=== PATIENT | male | born 1995 | race Caucasian/White ===

== ENCOUNTER 2021-01-27 11:39 | Emergency (ER) | payer OTHER ==
[2021-01-27 11:52] VITALS: BP 143/88; PULSE 93
--- NOTE | 2021-01-27 12:32 | EDM.PDOC ---
ED HPI GENERAL MEDICAL PROBLEM - General Chief Complaint: Head Injury Stated Complaint: POSS HEAD INJURY Time Seen by Provider: 01/27/21 11:51 Source of Information: Reports: Patient History Limitations: Reports: No Limitations - History of Present Illness INITIAL COMMENTS - FREE TEXT/NARRATIVE: 25-year-old male presents the emergency department with complaints of a head injury. 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 Patient states the ladder was approximately a 10 foot tall letter. He estimates that it weighed about 20 pounds. He denies loss of consciousness, blurred vision or double vision. He states he initially had some neck discomfort however this has resolved by the time of ER visit. He denies taking any blood thinners or aspirin. He denies any significant medical history. Head Pain Score (Numeric/FACES): 3 - Related Data Allergies Allergy/AdvReac Type Severity Reaction Status Date / Time amoxicillin Allergy Hives Verified 03/06/16 13:01 Home Meds: Home Meds . [No Known Home Meds] 03/06/16 [History] Past Medical History - Past Health History Medical/Surgical History: Denies Medical/Surgical History Genitourinary History: Reports: Renal Calculus - Infectious Disease History Infectious Disease History: Reports: None Social & Family History - Tobacco Use Tobacco Use Status *Q: Never Tobacco User - Caffeine Use Caffeine Use: Reports: Coffee - Recreational Drug Use Recreational Drug Type: Reports: Marijuana/Hashish ED ROS GENERAL - Review of Systems Review Of Systems: Comprehensive ROS is negative, except as noted in HPI. ED EXAM, HEAD INJURY - Physical Exam Exam: See Below Exam Limited By: No Limitations General Appearance: Alert, WD/WN, No Apparent Distress Head: Scalp Abrasions (Very small superficial abrasion noted to the top of the patient's scalp.), Scalp Tenderness (Top of patient's scalp) Nexus Criteria: No: Posterior, Midline Cervical Tenderness, Evidence of Intoxication, Altered Level of Consciousness, Focal Neurological Deficit, Painful Distraction Injuries Eyes: Bilateral Eye: EOMI, PERRL Ears: Normal External Exam, Hearing Grossly Normal Nose: Normal Inspection Throat/Mouth: Normal Inspection, Normal Lips, Normal Voice, No Airway Compromise Neck: Non-Tender, Full Range of Motion, Normal Alignment, Normal Inspection Respiratory: No Respiratory Distress, Lungs Clear, Normal Breath Sounds, No Accessory Muscle Use, Chest Non-Tender Cardiovascular: Normal Peripheral Pulses, Regular Rate, Rhythm, No Edema, No Murmur GI/Abdominal Exam: Normal Bowel Sounds, Soft, Non-Tender, No Distention (Male) Exam: Deferred Rectal (Males) Exam: Deferred Back Exam: Normal Inspection Extremities: Normal Inspection, Normal Range of Motion 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 Upon exam, patient is awake alert and oriented x3. Full neuro exam is completely unremarkable. Does have a small area of redness and a very small superficial abrasion noted to the top of his head measuring approximately 2 cm x 1 cm. I do not appreciate any cervical tenderness. Did discuss CT scan with the patient and the risks and benefits. At this time he declines wanting a CT scan of the head. He will be discharged home with return precautions. Last Recorded V/S: Last Vital Signs Temp 98.1 F 01/27/21 11:51 Pulse 93 01/27/21 11:51 Resp 20 01/27/21 11:51 BP 143/88 H 01/27/21 11:51 Pulse Ox 100 01/27/21 11:51 Departure - Departure Time of Disposition: 12:29 Disposition: Home, Self-Care 01 Condition: Good Clinical Impression: Head contusion Qualifiers: Encounter type: initial encounter Contusion of head detail: scalp Qualified Code(s): S00.03XA - Contusion of scalp, initial encounter - Discharge Information Instructions: Facial or Scalp Contusion, [id number]-Aqey Referrals: PCP,None [Primary Care Provider] - Forms: ED Department Discharge Additional Instructions: You were seen in the emergency department today for evaluation after a ladder tipped over and fell on your head. Full neuro exam was completed and was unremarkable. We did discuss CT scan however did not feel that it was warranted on this visit. Recommend that you go home and get plenty rest and drink plenty of fluids. May take Tylenol 650 mg every 4 hours as needed for headache or ibuprofen 600 mg every 6-8 hours as needed for headache. Over the course of the next week, recommend limiting electronics such as cell phone, TV and computer usage to about 1 hour a day to give your brain rest. Should you develop nausea, vomiting, blurred vision or double vision, do not hesitate returning to the emergency department. Sepsis Event Note (ED) - Focused Exam Vital Signs: Vital Signs Temp Pulse Resp BP Pulse Ox 01/27/21 11:51 98.1 F 93 20 143/88 H 100
== END 2021-01-27 12:38 | disposition home or self-care (01) ==
LOC: JD.ED 11:39
DX: S00.03XA Contusion of scalp, initial encounter (principal); Z88.0 Allergy status to penicillin; W22.8XXA Striking against or struck by other objects, initial encounter; Y92.89 Other specified places as the place of occurrence of the external cause; Y99.0 Civilian activity done for income or pay
CPT/HCPCS: 99282; 99283

== ENCOUNTER 2023-01-16 05:50 | Day surgery (SDC) | payer BC ==
[~2023-01-16 05:50] MED LIST: Lactated Ringers 1,000 ML IV SCH; Sodium Chloride 0.9% 10 ML Syringe FLUSH PRN; Sodium Chloride 0.9% 10 ML Syringe FLUSH SCH
[2023-01-16] MEDS ORDERED: Lidocaine 1% 10 ML MDV ONE (06:11)
[2023-01-16] MEDS ORDERED: Bupivacaine 0.25% 10 ML SDV ONE (06:12)
[2023-01-16] MEDS ORDERED: fentaNYL 100 MCG/2 ML SDV ONE (06:37)
[2023-01-16] MEDS ORDERED: Lidocaine 2% 5 ML SDV ONE (06:37)
[2023-01-16] MEDS ORDERED: Midazolam 1 MG/ML 2 ML SDV ONE (06:38)
[2023-01-16] MEDS ORDERED: Propofol 200 MG/20 ML SDV ONE ×3 (06:38→07:53)
[2023-01-16] MEDS ORDERED: fentaNYL 100 MCG/2 ML SDV IVPUSH PRN (07:12)
[2023-01-16] MEDS ORDERED: Ondansetron 4 MG/2 ML SDV IVPUSH PRN (07:12)
[2023-01-16] MEDS ORDERED: HYDROmorphone 0.5 MG/0.5 ML Syringe IVPUSH PRN (07:12)
[2023-01-16 08:24] VITALS: BP 103/86; PULSE 63
[2023-01-16] MEDS ORDERED: Ropivacaine 0.5% 5 MG/ML 30 ML SDV ONE (09:50)
== END 2023-01-16 08:10 | disposition home or self-care (01) ==
LOC: JD.SDS 05:50
PROVIDERS: ATTEND Orthopaedic Surgery
DX: G56.02 Carpal tunnel syndrome, left upper limb (principal); F41.9 Anxiety disorder, unspecified; F32.A Depression, unspecified; K21.9 Gastro-esophageal reflux disease without esophagitis; G43.909 Migraine, unspecified, not intractable, without status migrainosus; Z88.0 Allergy status to penicillin; Z87.891 Personal history of nicotine dependence
CPT/HCPCS: 64721; J2250; J2704; J2795; J3010; J3490; J7120; 01810